=== PATIENT | male | born 1960 | race Caucasian/White ===

== ENCOUNTER 2017-02-04 18:40 | Emergency (ER) | payer OTHER ==
[~2017-02-04] VITALS: Ht 185.4 cm; Wt 120.2 kg
[~2017-02-04 18:40] MED LIST: KEFLEX500 M1 PO
[2017-02-04] MEDS ORDERED: NOMEDS XX (18:50)
--- NOTE | 2017-02-04 19:22 | RADIOLOGY REPORT PS360 ---
CHEST(2 VIEWS-NOT PORTABLE), [id number] VIEWS Ordering Physician: Patient Age: 56 years: Male HISTORY: FALL TECHNIQUE: 2 studies: 1. Right ribs. Oblique views and AP and below diaphragm view 2. Chest 2 view-. PA and lateral COMPARISON :No previous chest studies ========= RIGHT RIBS-----multiview Right ribs intact with no acute fracture nor lesion evident. no fracture IMPRESSION right ribs intact no fracture ========= CHEST, PA AND LATERAL------- Unfortunately No previous chest films on this patient for comparison. Initially question poor inspiration on but the PA chest film was repeated with similar appearance. There is prominent elevation right hemidiaphragm I see no discrete underlying mass. Initially question some slight infiltrate at the right suprahilar region but on the repeat film probably this density bilaterally is merely due to the hypertrophic first rib ends projected over suprahilar area. There is mild vascular engorgement but no overt CHF particularly when reviewed with the oblique rib series films. No pleural effusion... Heart upper normal in size. Johanne unremarkable. The patient does have any persistent ongoing respiration ordered chest pain low threshold for CT to exclude underlying cause for the elevated right hemidiaphragm/ and/or possible paralysis right hemidiaphragm... Consider pulmonary consult particularly if ongoing respiratory symptoms. . I would note that the trachea the base the neck resides left of midline-favor this is positional due to the head turned to the left, but would direct or physical exam to the right neck to exclude any palpable features here. IMPRESSION: 1. Right ribs are intact-on right rib series & CXR review. No fracture 2. No pneumothorax. No pleural effusion.. 3. Prominent Elevation right hemidiaphragm 4.. Upper normal prominence of central markings, likely mild pulmonary vascular engorgement, along with chronic lung changes accentuated by less than optimal inspiration... . If chest pain no restriction to persist low threshold for follow-up CT or pulmonary consult particularly pronounced asymmetric elevated right hemidiaphragm.
[2017-02-04 20:29] LABS: HEMOGLOBIN 14.3 g/dL (14.1-18.0); LYMPH # 2.1 K/mm3 (0.7-4.5); LYMPH % 14.8 % (10-50)
--- NOTE | 2017-02-04 20:38 | Emergency Room Report ---
History of Present Illness Time Seen by 2004 Presenting Problem in Triage Pt arrived:Walked Presenting Problem:FELL APPROX 7 FEET OFF A WAGON LOADED WITH TOBACCO TODAY AND GOT THE BREATH KNOCKED OUT OF HIM; NO HEAD INJURY; ONLY COMPLAINT IS RIGHT SIDE RIB PAIN AND RIGHT SIDE PAIN IN CHEST Onset of symptoms date/time:02/04/17 or onset unknown for: Treatment Prior to Arrival: [employer] MANAGEMENT [employer]IST Provided by: Sepsis Risk Assessment: Temp: 98.0 B/P: 136/84 MAP: Pulse: 69 Resp: 14 Recent fever? N Clinical Suspician of Infection? N Mental Status: 1 - Regular (Normal Baseline) Sepsis Risk:Low Sepsis Risk Have you (or family members/close friends) recently traveled outside the [place]? N If Yes, where/when: Have you had exposure to infectious disease within the past month? TB? Other? Specify: Source patient, RN notes reviewed, family, old records Exam Limitations no limitations Comment pt fell off wagon with acute injury rt lower rib and rt upper abd this afternoon - no neck pain and no loc - Cardiac Chest Pain Chest pain indicative of cardiac No Timing/Duration this evening Severity moderate ALLERGIES Coded Allergies: No Known Allergies (02/04/17) Home Medications Reported Medications No Home Medications (NO HOME MEDICATIONS) 1 EACH XX ONCE History Medical History General More? No Immunization Hx Ped.Immunizations UTD Yes DT/Tetanus 1-4 Years Ago Surgical Hx Previous Surgery?Y TONSILS Social History Smoking Hx Smoker: Never Smoker Tobacco: No Drugs none Review of Systems All Other Systems Reviewed and Negative Constitutional denies fever Eyes denies drainage ENT denies: ear discharge, epistaxis, throat pain. Respiratory denies cough, denies shortness of breath, denies wheezing Cardiovascular see HPI, chest pain, denies syncope Gastrointestinal see HPI, abdominal pain, denies nausea, denies vomiting Genitourinary denies: dysuria, frequency, hesitancy, hematuria. Musculoskeletal denies back pain, denies joint pain, denies joint swelling, denies neck pain Skin denies rash Psychiatric/Neurological denies headache, denies seizure Physical Exam Vital Signs Vital Signs Date Time Temp Pulse Resp B/P Pulse O2 O2 Flow FiO2 Ox Delivery Rate 02/044 62 14 150/84 98 02/04 2026 69 14 136/84 98 02/04 1846 98.0 62 18 97 - WBC >12,000 or <4,000 or 10% bands? 2 or more SIRS Criteria Met? B/P:150/84 MAP: Creatinine >2.0? UA output<0.5ml/kg/hr for 2 hrs? Platelet count >100,000? Lactate >2.0mmol/1? INR >1.2 or PTT > than 60 sec? Evidence of Organ Dysfunction? Provider documented clinical suspician of infection? N Sepsis Criteria Count: 0 Sepsis Risk: Low Sepsis Risk General Appearance no apparent distress Eye Exam - bilateral eye PERRL, bilateral eye EOMI Ear, Nose, Throat normal ENT inspection Neck supple Respiratory Status Yes: tender on palpation. No: respiratory distress. Lung Sounds bilateral: lungs clear. Cardiovascular regular rate/rhythm, no JVD, systolic murmur Peripheral Pulses Pulses normal Yes Gastrointestinal soft, no organomegaly, no pulsatile mass, no guarding, no rebound, tenderness Back no CVA tenderness, no vertebral tenderness Extremities normal inspection, pelvis stable Strength 4 Upper Ext (L), 4 Upper Ext (R), 4 Lower Ext (L), 4 Lower Ext (R) Neurologic alert, criminal legal assistant II-XII nml as tested, no motor/sensory deficits Glascow Coma Scale Glascow Coma Scale Response Value EYE response: 4 Spontaneously 4 MOTOR response: 6 OBEYS 6 VERBAL response: 5 Oriented & Converses 5 Total 15 Reflexes Reflexes normal No Mental status normal mood/affect Skin no rash cons.w/shingles Medical Decision Making LABS/Meds/Orders Pt receiving controlled substance in ED? No Results/Orders Laboratory Tests 02/04/170: Urine Color YELLOW, Urine Appearance CLEAR, Urine pH 5.5, Ur Specific [place] 1.020, Urine Protein NEGATIVE, Urine Ketones NEGATIVE, Urine Blood TRACE-INTACT, Urine Nitrate NEGATIVE, Urine Bilirubin NEGATIVE, Urine Urobilinogen 0.2, Ur Leukocyte Esterase NEGATIVE, Urine Glucose NEGATIVE 02/04/17 2020: Sodium 139, Potassium 3.8, Chloride 103, Carbon Dioxide 22, BUN 19 H, Creatinine 1.1, Estimated Creat Clear 126, Estimated GFR (MDRD) 69, Glucose 114 H, Calcium 8.9, Total Bilirubin 0.6, AST 65 H, ALT 86 H, Alkaline Phosphatase 59, Total Protein 7.2, Albumin 3.8, Globulin 3.4 H, Albumin/Globulin Ratio 1.1, WBC 14.2 H, RBC 4.57 L, Hgb 14.3, Hct 42.2, MCV 92.3, RDW 12.9, Plt Count 209, MPV 9.2, Gran % 77.8, Gran # 11.1 H, Lymphocytes % 14.8, Monocytes % 6.1, Eosinophils % 0.9, Basophils % 0.3, Lymphocytes # 2.1, Monocytes # 0.9, Eosinophils # 0.1, Basophils # 0.0, PUBS MCHC 33.8, MCH 31.2 Current Medication Orders Sig/Nerissa Start time Last Medication Dose Route Stop Time Status Admin Iopamidol 75 ML ONCE ONE 02/04 2130 UNV 02/04 IV 02/04 Sodium Chloride 10 ML ONCE ONE 02/04 2130 UNV 02/04 IV 02/04 Sodium Chloride 10 ML PRN PRN 02/04 2015 AC IV 02/05 2007 Ibuprofen 600 MG ONCE ONE 02/04 1900 DC 02/04 PO 02/04 Ibuprofen 0 .STK-MED ONE 02/04 1859 DC PO Orders Procedure Date/time Status DIET-NOTHING BY MOUTH 02/[address] CHEST W/O CONTRAST 02/[address] ABD & PELVIS W/ CONTRAST 02/[address] SCAN REQ 02/05 2008 Complete PELVIS AP ONLY 02/05 2008 Active IV SALINE LOCK 02/05 2008 Active URINALYSIS/COMPLETE 02/05 2008 Complete COMPLETE METABOLIC PANEL 02/05 2008 Complete CBC WITH AUTO DIFF 02/05 2008 Complete XRAY/CT/US XRAY/CT/US 1 XRAY chest, pelvis, rib XR interpretation by reviewed by me Xray Results no fracture seen XRAY/CT/US 2 CT abdomen, pelvis, chest CT interpretation by discussed w/radiologist Time results known: 2200 CT Results no fracture seen, abnormal (see report) Departure Departure Time of Disposition 2201 Disposition DC Home or Self Care(routine) Clinical Impression Primary Impression: Contusion of rib on right side Qualifiers: Encounter type: initial encounter Qualified Code: S20.211A - Contusion of right front wall of thorax, initial encounter Secondary Impressions: Blunt abdominal trauma Qualifiers: Encounter type: initial encounter Qualified Code: S39.81XA - Other specified injuries of abdomen, initial encounter Fall Qualifiers: Encounter type: initial encounter Qualified Code: W19.XXXA - Unspecified fall, initial encounter Condition STABLE Referrals CONNOR ALEXIS (Family) Patient Instructions DI for Rib Contusion Additional Instructions ice and use meds and call pcp for follow up Discharge Counseling Counseled pt/family regarding diagnosis, test results, medications/RX, follow up needs ED Critical Care Critical Care No at 2202
[2017-02-04 21:52] LABS: URINE BILIRUBIN - DIPSTICK NEGATIVE (NEG); URINE BLOOD TRACE-INTACT (NEG)
[2017-02-04 22:22] VITALS: BP 141/84
--- NOTE | 2017-02-05 04:49 | RADIOLOGY REPORT PS360 ---
PELVIS AP ONLY HISTORY: Fall with injury and pain fall ORDERING PHYSICIAN: Chapo Herrmann MD PATIENT AGE: 56 years COMPARISON: None FINDINGS: No fracture or dislocation is evident. No significant degenerative change. No lytic or blastic change. The SI joints have an unremarkable appearance. Unremarkable soft tissues. Contrast present in urinary bladder and ureters from recent CT scan. No evidence of contrast extravasation. IMPRESSION: Negative pelvis.
--- NOTE | 2017-02-05 05:26 | RADIOLOGY REPORT PS360 ---
CT CHEST W/O CONTRAST HISTORY: Right-sided chest pain following injury, chest pain, right rib pain PT FELL OFF OF A [employer] ORDERING PHYSICIAN: Chapo Herrmann MD PATIENT AGE: 56 years TECHNIQUE: Helical acquisition obtained without contrast.. Axial, sagittal, and coronal reformatted images are generated and reviewed. COMPARISON: None FINDINGS: Evaluation of the mediastinum and aorta is limited without IV contrast. No obvious mediastinal hematoma or aortic aneurysm. Normal heart size without evidence of pericardial effusion. Incidental mild gynecomastia. Right hemidiaphragm is elevated with atelectatic change in the right lung base. No evidence of pneumothorax. Contour deformity involving the anterolateral aspect of the right fifth rib consistent with nondisplaced fracture which could even be old. Please correlate clinically. CT abdomen report for upper abdomen findings IMPRESSION: 1. Elevated right hemidiaphragm with right basilar atelectasis. 2. Contour deformity involving the right fifth rib anteriorly consistent with nondisplaced fracture age-indeterminate. 3. Limited mediastinal and vascular evaluation without IV contrast.
--- NOTE | 2017-02-05 05:26 | RADIOLOGY REPORT PS360 ---
CT CHEST W/O CONTRAST HISTORY: Right-sided chest pain following injury, chest pain, right rib pain PT FELL OFF OF A [employer] ORDERING PHYSICIAN: Chapo Herrmann MD PATIENT AGE: 56 years TECHNIQUE: Helical acquisition obtained without contrast.. Axial, sagittal, and coronal reformatted images are generated and reviewed. COMPARISON: None FINDINGS: Evaluation of the mediastinum and aorta is limited without IV contrast. No obvious mediastinal hematoma or aortic aneurysm. Normal heart size without evidence of pericardial effusion. Incidental mild gynecomastia. Right hemidiaphragm is elevated with atelectatic change in the right lung base. No evidence of pneumothorax. Contour deformity involving the anterolateral aspect of the right fifth rib consistent with nondisplaced fracture which could even be old. Please correlate clinically. CT abdomen report for upper abdomen findings IMPRESSION: 1. Elevated right hemidiaphragm with right basilar atelectasis. 2. Contour deformity involving the right fifth rib anteriorly consistent with nondisplaced fracture age-indeterminate. 3. Limited mediastinal and vascular evaluation without IV contrast.
--- NOTE | 2017-02-05 05:38 | RADIOLOGY REPORT PS360 ---
CT ABD PELVIS W/ CONTRAST CLINICAL INDICATION: Abdominal pain, right-sided abdominal pain bony injury, right-sided pain PT FELL OFF OF A [employer] ORDERING PHYSICIAN: Chapo Herrmann MD PATIENT AGE: 56 years COMPARISON: None TECHNIQUE: Axial images obtained with sagittal and coronal reformats. PROCEDURE: Oral Contrast: None IV Contrast: 75 mL of [id number]. FINDINGS: Elevated right hemidiaphragm with right basilar atelectasis. The liver, gallbladder, spleen, and adrenal glands have an unremarkable appearance. There is mild fatty infiltration of the pancreas. No obvious pancreatic mass or ductal dilatation. There are 2 left renal cyst measuring 2 and 3 cm. 12 mm right renal cyst. No perinephric fluid collection. Kidneys have an otherwise unremarkable appearance. No free fluid. No evidence of perihepatic or perisplenic hematoma. No acute finding in the pelvis. No intestinal obstruction or free air. There is degenerative disc disease at L2-L3 and L3-L4 with limbus vertebra involving the anterior superior aspect of L3. Bilateral pars defects are present at L5. IMPRESSION: 1. No acute intra-abdominal or pelvic findings. 2. Bilateral renal cysts. 3. Degenerative changes lumbar spine with pars defects at L5
== END 2017-02-04 22:25 | disposition home or self-care (01) ==
LOC: ER 18:40
PROVIDERS: Emergency Medicine
DX: S20.211A Contusion of right front wall of thorax, initial encounter (principal); S39.81XA Other specified injuries of abdomen, initial encounter; W17.89XA Other fall from one level to another, initial encounter; Y92.71 Barn as the place of occurrence of the external cause